=== PATIENT | female | born 1955 | race Caucasian/White ===

== ENCOUNTER 2024-11-13 14:01 | Emergency (ER) | payer MEDICARE, OTHER ==
--- NOTE | 2024-11-13 14:12 | ERPHSYRPT ---
- History of Present Illness Time Seen by Provider: 11/13/24 14:11 Source: patient Exam Limitations: no limitations Physician History: This is a 69-year-old white female patient arrives by private vehicle and is a patient of primary care provider Dr. Farooq and cat scanner operator Dr. Lopez with the complaint of palpitations. She states she does not have chest pain but during her rapid heart rate sensation there was some chest tightness but that has resolved. Patient states that her phone told her she was in atrial fibrillation and SVT per her report. There is been no change in her medications. She has no history of coronary artery disease, she has not had coronary artery bypass graft or coronary artery stents placed, she denies chest pain. She denies shortness of breath. She denies calf pain. She has not had cough. Patient did attempt to perform Valsalva maneuvers at home, however, symptoms persisted. On arrival to emergency department her symptoms have nearly completely resolved. Patient is not on any anticoagulation therapy Timing/Duration: today Quality: tightness (Resolved chest tightness) Location: substernal, central Chest Pain Radiation: no radiation Severity of Pain-Max: mild Severity of Pain-Current: none Modifying Factors: Improves With: nothing Nitro Today/Relief: no nitro taken today Aspirin Treatment Today: 81 mg x 4, provided by ED Associated Symptoms: denies symptoms Prior Chest Pain/Cardiac Workup: no prior chest pain (Unclear if she has actually had chest pain workup by cardiology) Allergies/Adverse Reactions: No Known Drug Allergies Allergy (Unverified 11/13/24 14:28) Home Medications: Albuterol Sulfate [Proair Respiclick] 90 mcg IH Q6HPRN PRN 11/13/24 [History] Aspirin 81 mg PO DAILY 11/13/24 [History] Calcium Carbonate [Calcium] 1,000 iu PO HS 11/13/24 [History] Cholecalciferol (Vitamin D3) [Vitamin D3] 5,000 iu PO DAILY 11/13/24 [History] Fluticasone Propionate 50 mcg INTRANASAL BID 11/13/24 [History] Lansoprazole 1 tablet PO DAILY 11/13/24 [History] Levothyroxine Sodium 150 mcg PO DAILY 11/13/24 [History] Mecobalamin [B12 Active] 1,000 mcg PO DAILY 11/13/24 [History] Metoprolol Succinate 25 mg PO BID 11/13/24 [History] Rosuvastatin Calcium 5 mg PO HS 11/13/24 [History] Venlafaxine HCl [Effexor Xr] 150 mg PO DAILY 11/13/24 [History] Vit A/Vit C/Vit E/Zinc/Copper [Preservision Areds Tablet] 1 tab PO BID 11/13/24 [History] polyethylene glycoL 3350 [Miralax Powder] 119 gm PO 2XW 11/13/24 [History] Travel Risk - International Travel Have you traveled outside of the country in past 3 weeks: No - Emerging Infectious Disease Are you exhibiting symptoms associated with any current EIDs: No - Review of Systems Constitutional: No Symptoms Eyes: No Symptoms Ears, Nose, & Throat: No Symptoms Respiratory: No Symptoms Cardiac: Palpitations Abdominal/Gastrointestinal: No Symptoms Genitourinary Symptoms: No Symptoms Musculoskeletal: No Symptoms Skin: No Symptoms Neurological: No Symptoms Psychological: No Symptoms Endocrine: No Symptoms Hematologic/Lymphatic: No Symptoms Immunological/Allergic: No Symptoms All Other Systems: Reviewed and Negative - Past Medical History Pertinent Past Medical History: No - Nursing Vital Signs Nursing Vital Signs: Initial Vital Signs Temperature 98.6 F 11/13/24 14:03 Pulse Rate 78 11/13/24 14:03 Respiratory Rate 12 11/13/24 14:03 Blood Pressure 164/87 11/13/24 14:03 O2 Sat by Pulse Oximetry 97 11/13/24 14:03 Pain Scale Pain Intensity 0 - Physical Exam General Appearance: no apparent distress, alert, anxiety Eye Exam: PERRL/EOMI, eyes nml inspection Ears, Nose, Throat Exam: normal ENT inspection, moist mucous membranes Neck Exam: normal inspection, non-tender, supple, full range of motion Respiratory Exam: normal breath sounds, lungs clear, airway intact, No chest tenderness, No respiratory distress Cardiovascular Exam: regular rate/rhythm, normal heart sounds Gastrointestinal/Abdomen Exam: soft, normal bowel sounds, No tenderness Pelvic Exam: not done Rectal Exam: not done Back Exam: normal inspection, normal range of motion, No CVA tenderness, No vertebral tenderness Extremity Exam: normal inspection, normal range of motion, pelvis stable Neurologic Exam: alert, oriented x 3, cooperative, power originator II-XII nml as tested, nml cerebellar function, nml station & gait, sensation nml Skin Exam: normal color, warm, dry Lymphatic Exam: No adenopathy SpO2 Interpretation: normal O2 Delivery: Room Air - Course Nursing assessment & vital signs reviewed: Yes EKG Interpreted by Me: RATE (80), Sinus Rhythm, NORMAL AXIS, NORMAL INTERVALS, NORMAL QRS, Other (QTc 415. No acute ischemia on this twelve-lead EKG.) Ordered Tests: Active Orders 24 hr Category Date Time Status EKG-ER Only STAT Care 11/13/24 14:13 Active IV Insertion STAT Care 11/13/24 14:13 Active Pulse Oximetry (ED) STAT Care 11/13/24 14:13 Active CHEST WITH CONTRAST [CT] Stat Exams 11/13/24 14:59 Taken CBC W DIFF Stat Lab 11/13/24 14:15 Completed CMP Stat Lab 11/13/24 14:15 Completed D-DIMER QUANTITATIVE Stat Lab 11/13/24 14:15 Completed MAGNESIUM Stat Lab 11/13/24 14:15 Completed NT PRO BNPII Stat Lab 11/13/24 14:15 Completed PROTIME WITH INR Stat Lab 11/13/24 14:15 Completed TROPONIN Q4H Lab 11/13/24 14:15 Completed TROPONIN Q4H Lab 11/13/24 18:15 Received TROPONIN Q4H Lab 11/13/24 22:15 Ordered UA W/RFX UR CULTURE Stat Lab 11/13/24 15:00 Completed Medication Summary Discontinued Medications Generic Name Dose Route Start Last Admin Trade Name Freq PRN Reason Stop Dose Admin Aspirin 324 mg 11/13/24 14:13 11/13/24 14:18 Aspirin 81 Mg Tab.Chew PO 11/13/24 14:14 Not Given STAT ONE Aspirin 243 mg 11/13/24 14:18 11/13/24 14:21 Aspirin 81 Mg Tab.Chew PO 11/13/24 14:19 243 mg STAT ONE Administration Aspirin Confirm 11/13/24 14:20 Aspirin 81 Mg Tab.Chew Administered 11/13/24 14:21 Dose 243 mg .ROUTE .STK-MED ONE Methylprednisolone Sodium 0 mg 11/13/24 16:08 11/13/24 16:13 Succinate 125 mg/ Sterile IV 11/13/24 16:09 125 mg Water 2 ml STAT ONE Administration Diphenhydramine HCl 50 mg 11/13/24 16:08 11/13/24 16:15 Diphenhydramine Hcl 50 Mg/Ml Vial IV 11/13/24 16:09 50 mg STAT ONE Administration Diphenhydramine HCl Confirm 11/13/24 16:11 Diphenhydramine Hcl 50 Mg/Ml Vial Administered 11/13/24 16:12 Dose 50 mg .ROUTE .STK-MED ONE Sodium Chloride 500 mls @ 500 mls/hr 11/13/24 14:59 11/13/24 16:10 Sodium Chloride 0.9% 500 Ml IV 11/13/24 15:58 Infused .Q1H ONE Infusion Sodium Chloride Confirm 11/13/24 15:06 Sodium Chloride 0.9% 500 Ml Administered 11/13/24 15:07 Dose 500 mls @ ud IV .STK-MED ONE Methylprednisolone Sodium Succinate Confirm 11/13/24 16:11 Methylprednis Sod Succ 125 Mg/2 Ml Vial Administered 11/13/24 16:12 Dose 125 mg .ROUTE .STK-MED ONE Sterile Water Confirm 11/13/24 16:11 Water For Injection,Sterile 10 Ml Vial Administered 11/13/24 16:12 Dose 10 ml IJ .STK-MED ONE Lab/Rad Data: Laboratory Result Diagrams 11/13/24 14:15 11/13/24 14:15 Laboratory Results 11/13/24 11/13/24 11/13/24 Range/Units 15:00 14:15 14:15 WBC (3.98-10.04) x10^3/uL RBC (3.93-5.22) x10^6/uL Hgb (11.2-15.7) g/dL Hct (34.1-44.9) % MCV (79.4-94.8) fL MCH (25.6-32.2) pg MCHC (32.2-35.5) g/dL RDW (11.7-14.4) % Plt Count (182-369) x10^3/uL MPV (9.4-12.3) fL Gran % (34.0-71.1) % Immature Gran % (Auto) (0.001-0.429) % Nucleat RBC Rel Count (0.00-0.2) % Eos # (Auto) (0.04-0.36) x10^3/uL Immature Gran # (Auto) (0.001-0.031) x10^3u/L Absolute Lymphs (auto) (1.18-3.74) x10^3/uL Absolute Monos (auto) (0.24-0.86) x10^3/uL Absolute Nucleated RBC (0.00-0.012) x10^3u/L Lymphocytes % (19.3-51.7) % Monocytes % (4.7-12.5) % Eosinophils % (0.7-5.8) % Basophils % (0.1-1.2) % Absolute Granulocytes (1.56-6.13) x10^3/uL Basophils # (0.01-0.08) x10^3/uL PT 10.2 (9.4-12.5) SECONDS INR 0.91 (0.8-3.0) D-Dimer 0.61 H* (0.0-0.50) mg/L Sodium (135-145) mmol/L Potassium (3.5-5.1) mmol/L Chloride (98-107) mmol/L Carbon Dioxide (22-30) mmol/L Anion Gap (5-15) MEQ/L BUN (7-17) mg/dL Creatinine (0.52-1.04) mg/dL Estimated GFR ML/MIN Glucose (74-106) mg/dL Calcium (8.4-10.2) mg/dL Magnesium (1.6-2.3) mg/dL Total Bilirubin (0.2-1.3) mg/dL AST (14-36) U/L ALT (0-35) U/L Alkaline Phosphatase (38-126) U/L Troponin I < 0.012 (0.000-0.033) ng/mL NT-Pro-B Natriuret Pep (<300) pg/mL Serum Total Protein (6.3-8.2) g/dL Albumin (3.5-5.0) g/dL Urine Color Yellow (Yellow) Urine Appearance Clear (Clear) Urine pH 7.5 (4.6-8.0) Ur Specific [place] <=1.005 (1.005-1.030) Urine Protein Negative (Negative) Urine Glucose (UA) Negative (Negative) mg/dL Urine Ketones Negative (Negative) Urine Blood Negative (Negative) Urine Nitrite Negative (Negative) Urine Bilirubin Negative (Negative) Urine Urobilinogen 0.2 (0.2) mg/dL Ur Leukocyte Esterase Negative (Negative) U Hyaline Cast (Auto) NONE SEEN (0-2) /LPF Urine Microscopic RBC 0-2 (0-5) /HPF Urine Microscopic WBC 0-2 (0-5) /HPF Ur Epithelial Cells None Seen (None Seen) /HPF Urine Bacteria None Seen (None Seen) /HPF Urine Culture Reflexed NO (NO) 11/13/24 11/13/24 Range/Units 14:15 14:15 WBC 6.6 (3.98-10.04) x10^3/uL RBC 3.96 (3.93-5.22) x10^6/uL Hgb 11.1 L (11.2-15.7) g/dL Hct 33.9 L (34.1-44.9) % MCV 85.6 (79.4-94.8) fL MCH 28.0 (25.6-32.2) pg MCHC 32.7 (32.2-35.5) g/dL RDW 13.3 (11.7-14.4) % Plt Count 281 (182-369) x10^3/uL MPV 10.7 (9.4-12.3) fL Gran % 56.7 (34.0-71.1) % Immature Gran % (Auto) 0.3 (0.001-0.429) % Nucleat RBC Rel Count 0.0 (0.00-0.2) % Eos # (Auto) 0.29 (0.04-0.36) x10^3/uL Immature Gran # (Auto) 0.02 (0.001-0.031) x10^3u/L Absolute Lymphs (auto) 1.93 (1.18-3.74) x10^3/uL Absolute Monos (auto) 0.56 (0.24-0.86) x10^3/uL Absolute Nucleated RBC 0.00 (0.00-0.012) x10^3u/L Lymphocytes % 29.2 (19.3-51.7) % Monocytes % 8.5 (4.7-12.5) % Eosinophils % 4.4 (0.7-5.8) % Basophils % 0.9 (0.1-1.2) % Absolute Granulocytes 3.75 (1.56-6.13) x10^3/uL Basophils # 0.06 (0.01-0.08) x10^3/uL PT (9.4-12.5) SECONDS INR (0.8-3.0) D-Dimer (0.0-0.50) mg/L Sodium 137 (135-145) mmol/L Potassium 4.5 (3.5-5.1) mmol/L Chloride 100 (98-107) mmol/L Carbon Dioxide 29 (22-30) mmol/L Anion Gap 12.3 (5-15) MEQ/L BUN 15 (7-17) mg/dL Creatinine 0.74 (0.52-1.04) mg/dL Estimated GFR 87.0 ML/MIN Glucose 95 (74-106) mg/dL Calcium 9.6 (8.4-10.2) mg/dL Magnesium 2.1 (1.6-2.3) mg/dL Total Bilirubin 0.30 (0.2-1.3) mg/dL AST 30 (14-36) U/L ALT 19 (0-35) U/L Alkaline Phosphatase 73 (38-126) U/L Troponin I (0.000-0.033) ng/mL NT-Pro-B Natriuret Pep 335 (<300) pg/mL Serum Total Protein 7.1 (6.3-8.2) g/dL Albumin 4.7 (3.5-5.0) g/dL Urine Color (Yellow) Urine Appearance (Clear) Urine pH (4.6-8.0) Ur Specific [place] (1.005-1.030) Urine Protein (Negative) Urine Glucose (UA) (Negative) mg/dL Urine Ketones (Negative) Urine Blood (Negative) Urine Nitrite (Negative) Urine Bilirubin (Negative) Urine Urobilinogen (0.2) mg/dL Ur Leukocyte Esterase (Negative) U Hyaline Cast (Auto) (0-2) /LPF Urine Microscopic RBC (0-5) /HPF Urine Microscopic WBC (0-5) /HPF Ur Epithelial Cells (None Seen) /HPF Urine Bacteria (None Seen) /HPF Urine Culture Reflexed (NO) - Progress Progress: improved, re-examined Air Movement: good Progress Note: 11/13/24 14:21 My medical decision making and the assignment of moderate complexity to this patient's medical issue today is based on review of the patient's past medical history, reviewed patient medication list, reviewed patient drug allergy list, history present illness and physical findings on examination. The workup in this patient includes placement of intravenous line, twelve-lead EKG, magnesium level, troponin level, BNP, D-dimer level, CMP, CBC Differential diagnosis includes but is not limited to anxiety, electrolyte abnormalities, myocardial infarction, pulmonary embolus, arrhythmia 11/13/24 15:00 I interpreted the laboratory data results. Based on laboratory data results, the patient's D-dimer is elevated. She also has documentation by a phone EKG of atrial fibrillation and had palpitations with some chest tightness prior to arrival. Therefore, we will hydrate her and perform a CT scan of the chest with contrast. Patient currently has no chest pain, no palpitations and no shortness of breath. She is not on any anticoagulation therapy 11/13/24 18:[address] scan of the chest with contrast was interpreted by the radiologist and I reviewed the impression. The [place] states no comparison films. Mild emphysema. Moderate colonic fecal stasis. Otherwise normal CT pulmonary embolism exam Blood Culture(s) Obtained: No Antibiotics given: No Counseled pt/family regarding: lab results, diagnosis Medical Desision Making - Diagnostic Testing Diagnostic test were ordered, analyzed, and reviewed by me: Yes Radiological Interpretation: Reviewed by me, Teleradiologist Report - Risk of complications Low Risk: Low risk of morbidity from additional dx testing or treatment - Departure Departure Disposition: Home Clinical Impression: Palpitations Condition: Stable Critical Care Time: No Referrals: ANGEL FAROOQ MD [Primary Care Provider, INTERNAL MEDICINE] - Follow up/PCP as directed Additional Instructions: Take all your medications as prescribed. Call your cat scanner operator tomorrow, 11/14/2024 as well as your primary care provider, to make a follow-up appointment to be seen in the next 3 to 5 days
[2024-11-13 14:17] VITALS: TEMP 98.6
[2024-11-13] MEDS: BABY ASPIRIN 81 MG CHEW PO ONE ×2 (14:18→14:21)
[2024-11-13] MEDS ORDERED: BABY ASPIRIN 81 MG CHEW ONE (14:20)
[2024-11-13 14:23] LABS: BASOPHIL % 0.9 % (0.1-1.2); Basophil (Absolute #) 0.06 x10^3/uL (0.01-0.08); Eosinophil (Absolute #) 0.29 x10^3/uL (0.04-0.36); Hematocrit 33.9 % (34.1-44.9); Hemoglobin 11.1 g/dL (11.2-15.7); IMMATURE GRAN # 0.02 x10^3u/L (0.001-0.031); IMMATURE GRAN % 0.3 % (0.001-0.429); Lymphocyte (Absolute #) 1.93 x10^3/uL (1.18-3.74); Mean Corpuscular Hemoglobin 28.0 pg (25.6-32.2); Mean Corpuscular Hgb Concent. 32.7 g/dL (32.2-35.5); Monocyte (Absolute #) 0.56 x10^3/uL (0.24-0.86); NUCLEATED RBC # 0.00 x10^3u/L (0.00-0.012); NUCLEATED RBC % 0.0 % (0.00-0.2); Platelet Count 281 x10^3/uL (182-369); Red Blood Count 3.96 x10^6/uL (3.93-5.22); White Blood Count 6.6 x10^3/uL (3.98-10.04)
[2024-11-13 14:48] LABS: Calcium 9.6 mg/dL (8.4-10.2); Carbon Dioxide 29.0 mmol/L (22-30); Creatinine 1 0.74 mg/dL (0.52-1.04); EST GLOMERULAR FILTRATION RATE 87.0 ML/MIN; Glucose 95.0 mg/dL (74-106); NT PRO BNPII 335.0 pg/mL (<300); Potassium 4.5 mmol/L (3.5-5.1); SGOT/AST 30.0 U/L (14-36); SGPT/ALT 19.0 U/L (0-35); Total Protein 7.1 g/dL (6.3-8.2)
[2024-11-13 14:49] LABS: INR 0.91 (0.8-3.0); PROTIME 10.2 SECONDS (9.4-12.5)
[2024-11-13 15:34] LABS: Glucose, Urine Negative (Negative); Protein,Urine Dip Negative (Negative); RBC 0-2 /HPF (0-5); WBC 0-2 /HPF (0-5)
[2024-11-13] MEDS ORDERED: Sterile H2O 10 ml IJ ONE (16:11)
[2024-11-13] MEDS ORDERED: BENADRYL 50 MG/ML ONE (16:11)
[2024-11-13] MEDS: solu-MEDROL 125 MG, Sterile H2O 10 ml 2 ML IV ONE (16:13)
[2024-11-13] MEDS: BENADRYL 50 MG/ML IV ONE (16:15)
[2024-11-13 18:04] VITALS: O2SAT 95
[2024-11-13 18:43] VITALS: BP 147/67; PULSE 74; RESP 18
--- NOTE | 2024-11-14 08:37 | XRAY ---
Indication: Chest tightness. Elevated D-dimer. Multiple contiguous axial images obtained through the chest using 80 cc Isovue 370 contrast and PE protocol. Comparison: None Good opacification pulmonary arteries to include lobar and segmental branches. No pulmonary embolus. Heart not enlarged. Aorta is normal in course and caliber. No pathologic mediastinal/hilar lymphadenopathy. Small hiatal hernia. Lungs demonstrates mild pulmonary emphysema, minimal scattered peripheral fibrosis/scarring bilaterally, and a few scattered tiny calcified granulomas bilaterally. No suspicious pulmonary mass/nodule, infiltrate, or effusion. Bony thorax intact with osteopenia , mild degenerative changes throughout spine, and incompletely visualized lower cervical fusion hardware. Limited upper abdomen demonstrates cholecystectomy clips. Visualized colon demonstrates moderate diffuse fecal stasis. Impression: 1. Negative pulmonary embolus. No acute cardiopulmonary abnormalities. 2. Incidental colonic fecal stasis. 3. Chronic findings including pulmonary emphysema, pulmonary fibrosis/scarring, hiatal hernia, chronic bony findings, and old granulomatous disease.
== END 2024-11-13 18:48 | disposition home or self-care (01) ==
LOC: ED 14:01
DX: R00.2 Palpitations (principal); Z79.899 Other long term (current) drug therapy; R79.89 Other specified abnormal findings of blood chemistry